=== PATIENT | male | born 1970 | race Caucasian/White ===

== ENCOUNTER 2019-10-19 10:32 | Inpatient (IN) ==
[2019-10-19] MEDS ORDERED: MORPHINE IV ONE (11:03)
[2019-10-19] MEDS ORDERED: ZOFRAN IV ONE (11:03)
[2019-10-19] MEDS ORDERED: NS 1,000 ML IV ONE ×2 (11:03)
[2019-10-19] MEDS ORDERED: PROTONIX 80 MG in NS 80 ML IV ONE (11:19)
--- NOTE | 2019-10-19 11:45 | Diag Imaging Result Doc PS360 ---
EXAM: CHEST-1 VIEW 10/19/2019 HISTORY: COUGH TECHNIQUE: AP portable upright at 1128 COMMENT: There are no previous chest radiographs available for comparison. There is an ovoid nodule over the right base. The heart size and pulmonary vascularity appear to be within normal limits. IMPRESSION: Nodular opacity over the right lower lobe. Electronically signed by Neftali Waldron 10/19/2019 11:43 AM
--- NOTE | 2019-10-19 12:49 | EKG Report ---
Test Performed on : 10/19/2019 12:41:44 PM Test Reason : CHEST PAIN Blood Pressure : / mmHG Vent. Rate : 081 BPM Atrial Rate : 081 BPM P-R Int : 140 ms QRS Dur : 108 ms QT Int : 368 ms P-R-T Axes : 069 -74 047 degrees QTc Int : 427 ms Normal sinus rhythm. Left anterior fascicular block Inferior-posterior infarct , age undetermined Abnormal ECG No previous ECGs available Unconfirmed Result
[2019-10-19 12:50] LABS: BASO# 0.02 X1000 (0.0-0.2); BASO% 0.1 % (0.0-0.8); HEMATOCRIT 46.5 % (42.0-52.0); HEMOGLOBIN 15.3 g/dL (14.0-18.0); IMM GRAN# 0.06 X1000 (0.0-0.04); IMM GRAN% 0.3 % (0.0-0.5); LYMPH# 2.06 X1000 (1.2-3.4); LYMPH% 11.9 % (20.5-51.1); MCH 29.3 PG (27-31); MCHC 32.9 g/dL (33-37); MCV 88.9 FL (81-99); MONO# 2.14 X1000 (0.11-0.59); MONO% 12.4 % (1.7-9.3); MPV 10.6 FL (7.4-10.4); NEUT# 12.96 X1000 (1.4-6.5); NEUT% 75.3 % (42.2-75.2); PLT 176 X1000 (130-400); RBC 5.23 XMIL (4.7-6.1); RDW 13.7 % (11.5-14.5); WBC 17.24 X1000 (4.8-10.8)
[2019-10-19 13:00] LABS: INR 1.01; PROTIME 13.5 Seconds (11.0-16.0)
[2019-10-19 13:01] LABS: PTT 35.3 Seconds (22.3-41.8)
[2019-10-19 13:15] LABS: ALB/GLOB RATIO 1.6; CALCIUM 8.5 mg/dL (8.8-10.2); CREATININE 1.9 mg/dL (0.7-1.2); POTASSIUM 4.2 mmol/L (3.5-5.1); TOTAL BILIRUBIN 0.58 mg/dL (0.20-1.00); TOTAL PROTEIN 6.5 g/dL (6.3-8.3)
[2019-10-19 13:36] LABS: CK INDEX 0.4 (0.0-2.5); CK-MB 2.57 ng/mL (0.0-5.0)
--- NOTE | 2019-10-19 14:40 | Diag Imaging Result Doc PS360 ---
EXAM: CT ABD/PELVIS W/IV CONT ONLY 10/19/2019 HISTORY: colitis TECHNIQUE: This exam was performed using automated exposure control, adjustment of mA or kV according to patient size, and/or use of iterative reconstruction technique. COMMENT: There are no previous studies. There is some dependent platelike atelectasis particularly in the right lower lobe. There is a large nodule in the right middle lobe with central calcification. This is likely a granuloma or hamartoma and measures in excess of 2.5 cm in diameter. The gallbladder is apparently clear. There is some atherosclerotic calcification and noncalcified plaque in the abdominal aorta. There may be some ostial stenosis of the right renal artery. The mesenteric vessels are patent. There is no evidence of significant adenopathy. The spleen adrenal glands and pancreas are within normal limits. There is some fecal debris in the colon there is no evidence of mucosal thickening. The small bowel is not particularly distended. There are no abnormal fluid collections in the appendix is normal in appearance. Pelvis: The urinary bladder is unremarkable. The regional skeleton is intact. IMPRESSION: Minimal atelectasis. No evidence of acute colitis. Otherwise no evidence of acute disease. Electronically signed by Neftali Waldron 10/19/2019 2:37 PM
[2019-10-19] MEDS ORDERED: ZOSYN 4.5 GM in NS 100 ML IV ONE (14:51)
[2019-10-19 15:00] LABS: URINE SOURCE CLEAN CATCH
--- NOTE | 2019-10-19 15:03 | PROVIDER DOCUMENTATION ---
This chart was entered by Georgia Bob Scribe, acting as scribe for Misael Adair MD. HPI-Abdominal Pain/GI Problem - General Chief Complaint: Abdominal Pain Stated Complaint: abd pain,n/d/v,coughing Time Seen by Provider: 10/19/19 10:48 Source: patient Allergies/Adverse Reactions: Patient Allergies Allergy/AdvReac Type Severity Reaction Status Date / Time No Known Allergies Allergy Verified 10/19/19 12:05 Home Medications: Home Medication List Medication Instructions Recorded Confirmed Last Taken Type Metformin HCl 1 tab PO DAILY 10/19/19 10/19/19 10/19/19 History - History of Present Illness-ABD Nature of Presenting Problems: 49yom presents to ED cc nausea, vomiting, diarrhea, cough abdominal pain and chest pain only with cough for last 3 days. Pt denies alcohol use, rectal bleeding or hx of liver issues but is a smoker. Pt does take aspirin daily. Pt has hx of ID w/2 Stents. Pt is vomiting up bright red blood in ED but hasn't had any at home. Rectal exam was preformed by Med Student Ilya Miller Abdominal Pain Onset Location: reports: generalized abdomen Pain Radiation: reports: chest Quality of Pain: reports: aching Severity in ED: reports: moderate Onset/Duration: reports: 3 days ago Timing: reports: still present, getting worse Activities at Onset: reports: light activity Modifying Factors: worse with: vomiting Associated Symptoms: reports: chest pain, cough, diarrhea, nausea, vomiting Last BM: this morning Dark Stools Present?: reports: none noticed Rectal Bleeding: reports: none Rectal Pain: reports: none Emesis Description: reports: red blood Similar Symptoms Previously?: No Recently seen or treated by another doctor?: No Review of Systems - Adult - REVIEW OF SYSTEMS - ADULT Constitutional: reports: see HPI. denies: chills, fever, fatique Eyes: reports: no symptoms reported Ears, Nose, Mouth & Throat: reports: no symptoms reported Cardiovascular: reports: see HPI, chest pain (only with coughing). denies: palpitations Respiratory: reports: see HPI, cough. denies: shortness of breath Gastrointestinal: reports: see HPI, abdominal pain (only with cough), diarrhea, nausea, vomiting. denies: rectal bleeding Genitourinary: reports: no symptoms reported Musculoskeletal: reports: no symptoms reported Integumentary: reports: no symptoms reported Neurological: reports: no symptoms reported Psychiatric: reports: no symptoms reported Endocrine: reports: no symptoms reported Hematologic/Lymphatic: reports: no symptoms reported Allergic/Immunologic: reports: no symptoms reported All Other Systems: Reviewed and Negative Past History - Adult - PAST MEDICAL HISTORY-ADULT Review of Records: reports: Nursing Assessment Review, Medications Reviewed, Social history reviewed & non-contributory. Major Childhood Illnesses: reports: denies history Cardiovascular: reports: denies history Respiratory: reports: denies history Gastrointestinal: reports: denies history Obstetrical/Gynecological: reports: denies history Genitourinary: reports: denies history Musculoskeletal: reports: denies history Neurological: reports: denies history Endocrine/Immune: reports: denies history Other Conditions: reports: denies history - IMMUNIZATION STATUS Childhood Immunizations: See Nurse Assessment Flu Vaccine: See Nurse Assessment - FAMILY HISTORY Family History: reviewed, not pertinent - SOCIAL HISTORY Smoking: cigarettes, greater than 1 pack/day Provider spent 3-5 mins advising pt. on dangers of tobacco.: Discussed manners to quit use, and f/u contacts for add'l counseling. Physical Exam-General - PHYSICAL EXAM-ADULT Initial Vital Signs Reviewed: Yes - CONSTITUTIONAL General Appearance: alert, no apparent distress. negative: anxious, combative - EYES Eyes: PERRL/EOMI, pink conjunctivae. negative: photophobia - HEAD, EARS, NOSE, MOUTH & THROAT HENMT: normocephalic/atraumatic, moist mucous membranes, other (bright red bloody vomit). negative: angioedema - NECK Neck: supple, normal inspection - RESPIRATORY Respiratory: chest non-tender, lungs clear, normal breath sounds. negative: rhonchi, wheezing - CARDIOVASCULAR Cardiovascular: normal peripheral pulses, no edema, no murmur, tachycardia, other (hypotensive). negative: bradycardia - GASTROINTESTINAL (ABDOMEN) Abdominal Exam: soft, abnormal bowel sounds (hyperactive). negative: normal bowel sounds, guarding, rebound - GENITOURINARY Rectal Exam: normal rectal tone, other (loose stool, greenish brown). negative: black stool, blood streaked stool, hemorrhoids, mass - MUSCULOSKELETAL Extremity: normal inspection, no pedal edema, no calf tenderness, normal capillary refill. negative: deformity - SKIN Integumentary: normal color. negative: diaphoresis, jaundice - PSYCHIATRIC Psych/Mental Status: normal mood/affect, oriented x 3. negative: anxious, disheveled Progress - PLAN OF CARE/RESULTS Progress/Plan/Lab Results: Vital Signs - 8 hr 10/19/19 10:36 Temperature 99.1 F Pulse Rate 96 H Respiratory Rate 16 Blood Pressure 91/65 O2 Sat by Pulse Oximetry 91 L Orders Category Date Time Status Cardiac Monitoring NOW Care 10/19/19 10:40 Active IV Insertion NOW Care 10/19/19 10:40 Active NEWS Score >or=5:Order NEWS Bundle S.O. NOW Care 10/19/19 10:38 Active Notify Provider of NEWS Score NOW Care 10/19/19 10:40 Active CHEST-1 VIEW [RAD] Stat Exams 10/19/19 10:40 Ordered BLOOD CULTURE [BLDCUL] Stat Lab 10/19/19 10:40 Uncollected CBC WITH DIFF [HEME] Stat Lab 10/19/19 10:40 Uncollected CK PROFILE [SP CHEM] Stat Lab 10/19/19 10:40 Uncollected COMPREHENSIVE METABOLIC PANEL [CHEM] Stat Lab 10/19/19 10:40 Uncollected LACTATE, PLASMA [CHEM] Q3H Lab 10/19/19 10:45 Uncollected LACTATE, PLASMA [CHEM] Q3H Lab 10/19/19 13:45 Uncollected LACTATE, PLASMA [CHEM] Q3H Lab 10/19/19 16:45 Uncollected PROTIME WITH INR [COAG] Stat Lab 10/19/19 10:40 Uncollected PTT [COAG] Stat Lab 10/19/19 10:40 Uncollected TROPONIN T HIGH SENSITIVITY Stat Lab 10/19/19 10:40 Uncollected URINALYSIS W/POSS RFLX CULT [URINALYSIS] Stat Lab 10/19/19 10:40 Uncollected O2 Per Protocol Stat Oth 10/19/19 10:40 Active EKG [EKG] Stat Ther 10/19/19 10:41 Ordered Result Diagrams: 10/19/19 12:45 10/19/19 12:45 - REASSESSMENT Reassessment #1 Time Reassessed: 14:50 Status: improving (Better after ivf bolus, protonix, zofran, also given zosyn IV) - EKG 1 Time of EKG reading by physician:: 12:49 EKG Read and Signed by:: Misael Adair EKG Interpretation (*Must complete 3 of following elements*): Abnormal (Left anterior fascicular block; inferior posterior infarct, age undetermined) Rate: 81 Rhythm: NSR ID Interval: normal ST Wave: normal - XRAY 1 XRAY: Bilateral XRAY Study: Chest Impression: See EMR Report (IMPRESSION: Nodular opacity over the right lower lobe. Electronically signed by Neftali Waldron 10/19/2019 11:43 AM) - CT/MRI 1 CT Study: Abdomen Impression: See EMR Report (IMPRESSION: Minimal atelectasis. No evidence of acute colitis. Otherwise no evidence of acute disease. Electronically signed by Neftali Waldron 10/19/2019 2:37 PM) - CONSULTS/PCP/HOSPITALIST Notification #1 *Consult/PCP/Hospitalist*: paged [phone] Time Discussed: 14:51 (Hima answered, will see, wants GI consulted) Consult Disposition: Will see in ED, Admit #2 Consult: Joyce paged at [phone] Time Discussed: 15:02 (Dr. Cunningham said NPO after midnight, will see in am) Consult Disposition: other Departure - Departure Date of Disposition Decision: 10/19/19 Time of Disposition Decision: 14:48 DIAGNOSIS: Acute nontraumatic kidney injury, Tobacco use disorder GIB (gastrointestinal bleeding) Qualifiers: GI bleed type/associated pathology: gastritis Gastritis type: acute gastritis Qualified Code(s): K29.01 - Acute gastritis with bleeding Disposition: ADMITTED INPATIENT 09 Certified Medical Emergency: Emergent Condition: Fair Referrals and Follow-Ups: None,PCP [Primary Care Provider] - Discharge Education: Steps to Quit Smoking, [id number] - Critical Care Note This patient required my direct & personal management of CC.: Yes Total Time (mins): 35 Critical Care Statement: This patient required my direct personal management to treat or rule out processes, the absence of which, could potentiallly result in sudden, clinically significant life or limb threatening deterioration. Attestation - Physician/ MARISSA Attestation Patient care was provided by Advanced Practice Provider:: No The physician spent face to face time with patient:: Yes Advanced Practice Provider documentation review:: Supervising physician onsite and consulted in the evaluation and care of this patient. The physician did have a face to face encounter with the patient. This chart was documented by the indicated scribe, (Georg[place] Bob, Daniella) and accurately reflects the services I performed and decisions made by , Misael Adair MD, as attested by the provider's signature.
[2019-10-19 15:06] LABS: BILIRUBIN URINE NEGATIVE (NEGATIVE); BLOOD URINE TRACE (NEGATIVE); COLOR YELLOW; GLUCOSE URINE NEGATIVE (NEGATIVE); KETONE URINE NEGATIVE (NEGATIVE); LEUKOCYTES URINE NEGATIVE (NEGATIVE); NITRITE URINE NEGATIVE (NEGATIVE); PROTEIN URINE TRACE mg/dL (NEGATIVE); TURBIDITY URINE CLEAR (CLEAR); UROBILINOGEN URINE NORMAL (NORMAL)
[2019-10-19 15:09] LABS: UR EPITHELIAL CELLS <10 /HPF (<10); URINE BACTERIA NEGATIVE /HPF; URINE RBC <10 /HPF (<10); URINE WBC <10 /HPF (<10)
[2019-10-19 15:12] LABS: URINE CRYSTALS NONE SEEN
[2019-10-19] MEDS ORDERED: ZOFRAN IV PRN (15:56)
[2019-10-19] MEDS: HUMULIN R SUBQ SCH ×2 (16:00→20:53)
[2019-10-19] MEDS ORDERED: SODIUM CHLORIDE 0.9% INJ SCH (16:15)
[2019-10-19] MEDS ORDERED: PROTONIX IV SCH (16:15)
--- NOTE | 2019-10-19 18:43 | HISTORY AND PHYSICAL ---
I have seen and examined Mr. Schroeder today in the emergency room. Mr. Schroeder presented because of cough, nausea, vomiting, and diarrhea. HISTORY OF PRESENTING COMPLAINT: Mr. Schroeder is a 49-year-old male who refers to have hypertension and diabetes. Normally lives in [place] but came to visit friends down here about 2 days ago. Since then, he said he has been having nausea, vomiting, and some diarrhea for 1 day. Yesterday he started having some chest discomfort and cough. This morning he vomited and it was bloody. He came to the emergency room where he was evaluated and we have been consulted for admission because of blood in his vomit and also a kidney function abnormality. PAST MEDICAL HISTORY: Diabetes, hypertension. PAST SURGICAL HISTORY: None. FAMILY HISTORY: Unremarkable. ALLERGIES: None. SOCIAL HISTORY: The patient has a 20 pack year history. He continues to smoke 1 to 1.5 packs per day. Denies any recreational drug use. No alcohol use. HOME MEDICATIONS: He said he is on metformin. He is also on something for blood pressure, but he does not remember. PHYSICAL EXAMINATION: CURRENT VITAL SIGNS: Blood pressure is 107/63, pulse of 80, respirations 16, temperature is 99.1 degrees. GENERAL: Mr. Schroeder is a 49-year-old gentleman who is in bed. He does not seems to be in any cardiopulmonary distress. HEENT: Mucosa is pink and moist. Anicteric. Acyanotic. The patient has poor dentition. NECK: Supple. CHEST: Good air entry bilaterally. A few crackles in the posterior lung butt. There is also a prolonged expiratory phase of respiration. CARDIOVASCULAR: Regular rate and rhythm. No murmurs. No rubs. No gallops. GI: Abdomen is soft, nontender. Bowel sounds present. There is no hepatosplenomegaly. EXTREMITIES: No pedal edema. Distal pulses are present. TEACHER INSTRUMENTAL: Patient is awake, alert, oriented x4. Power is 5/5. Sensation is intact. Executive functions intact. PSYCH: Mr. Schroeder is very cooperative. Has good insight. LABORATORY DATA: WBC is 17.24, hemoglobin is 15.3, platelet count 176,000. Chemistry is also reviewed. Sodium is 123, potassium 4.2, creatinine is 1.9. ASSESSMENT: 1. Nausea and vomiting with diarrhea, concerning for gastroenteritis. The patient had a CT scan of the abdomen which showed no evidence of acute colitis. 2. Cough with chest discomfort. Unremarkable chest x-ray. The patient's white cell count is slightly elevated. I think he probably has a viral syndrome. Blood cultures have been done. I would hold off on the antibiotics now, but I will check on his flu status. 3. Clinical volume depletion. Will continue with IV fluids. 4. Renal failure. Patient's creatinine is 1.9. We do not have previous studies to compare. We are going to monitor this, hydrate him overnight, recheck the renal function test again, and then go from there. cc: Horace Valle MD
[2019-10-19] MEDS ORDERED: TYLENOL PO PRN (20:12)
[2019-10-19] MEDS: NS 1,000 ML IV SCH (20:37)
[2019-10-19] MEDS: TAMIFLU PO SCH (20:37)
[2019-10-19 21:35] LABS: HEMATOCRIT 42.1 % (42.0-52.0); HEMOGLOBIN 13.8 g/dL (14.0-18.0)
[2019-10-20 05:15] LABS: BASO# 0.01 X1000 (0.0-0.2); BASO% 0.1 % (0.0-0.8); EOS# 0.02 X1000 (0.0-0.7); EOS% 0.2 % (0.0-10.0); HEMATOCRIT 42.9 % (42.0-52.0); HEMOGLOBIN 13.9 g/dL (14.0-18.0); IMM GRAN# 0.02 X1000 (0.0-0.04); IMM GRAN% 0.2 % (0.0-0.5); LYMPH# 2.32 X1000 (1.2-3.4); LYMPH% 21.2 % (20.5-51.1); MCH 29.1 PG (27-31); MCHC 32.4 g/dL (33-37); MCV 89.9 FL (81-99); MONO# 1.34 X1000 (0.11-0.59); MONO% 12.2 % (1.7-9.3); MPV 10.5 FL (7.4-10.4); NEUT# 7.24 X1000 (1.4-6.5); NEUT% 66.1 % (42.2-75.2); PLT 159 X1000 (130-400); RBC 4.77 XMIL (4.7-6.1); RDW 13.6 % (11.5-14.5); WBC 10.95 X1000 (4.8-10.8)
[2019-10-20 05:28] LABS: HEMOGLOBIN A1C 7.7 % (4.8-6.0)
[2019-10-20 05:38] LABS: AGAP 13; ALB/GLOB RATIO 1.2; ALBUMIN 3.1 g/dL (3.5-5.0); ALKALINE PHOSPHATASE 24 U/L (32-122); BUN 19 mg/dL (8-22); CALCIUM 7.6 mg/dL (8.8-10.2); CHLORIDE 98 mmol/L (98-107); COSMO 269; CREATININE 1.2 mg/dL (0.7-1.2); ESTIMATED GFR > 60; GLUCOSE 104 mg/dL (70-104); GOT 29 U/L (10-34); GPT 24 U/L (10-44); POTASSIUM 4.1 mmol/L (3.5-5.1); SODIUM 133 mmol/L (136-145); TCO2 22 mmol/L (25-35); TOTAL BILIRUBIN 0.42 mg/dL (0.20-1.00); TOTAL PROTEIN 5.6 g/dL (6.3-8.3)
[2019-10-20] MEDS: NS 1,000 ML IV SCH (05:59)
[2019-10-20] MEDS: HUMULIN R SUBQ SCH ×5 (06:01→21:48)
[2019-10-20] MEDS: PROTONIX IV SCH (09:32)
[2019-10-20] MEDS: TAMIFLU PO SCH ×2 (09:32→21:47)
--- NOTE | 2019-10-20 10:45 | PROGRESS NOTE ---
DATE: 10/20/2019 SUBJECTIVE: Overall, the patient's condition has improved since the last time Dr. Valle and I interviewed him yesterday afternoon. He reports that his admitting complaints of nausea and vomiting have improved slightly but still endorses mild sensations of nausea and vomiting and abdominal fullness, which are rendered by deep palpation. Furthermore, he reports that his feelings of fatigue and malaise have improved along with decreased sensations of shortness of breath. Yesterday, the patient tested positive for influenza A and was started on the appropriate treatment for eradication of the virus. OBJECTIVE: Vital signs: Most recent vital signs include a temperature of 98.6 degrees Fahrenheit, a heart rate of 70 beats per minute, a respiratory rate of 18 respirations per minute, a blood pressure of 105/62, and an O2 saturation of 97. PHYSICAL EXAMINATION: Cardiovascular: The heart is clear to murmurs, rubs, and gallops upon auscultation. Pulmonary: Mild inspiratory wheezes heard in all 4 lung butt consistent with chronic tobacco use, no rales were auscultated. The patient is acyanotic. GI: Bowel sounds present in all 4 quadrants. The patient endorses mild increase in sensations of nausea and vomiting upon palpation, specifically palpation to the right upper quadrant. Mild abdominal distention was appreciated in all 4 quadrants of the abdomen. PERTINENT IMAGING STUDIES: A CT of the abdomen and pelvis that was conducted yesterday 10/18 exhibited no evidence of acute disease with only mild atelectasis of the lungs. PERTINENT LABORATORY STUDIES: White blood cell count 10.95, red blood cell count 4.77, hemoglobin 13.9, hematocrit 42.9, MCV 89.9, MCH 29.1, MCHC 32.4. Sodium 133, potassium 4.1, chloride 98, carbon dioxide 22, anion gap 13, BUN 19, creatinine 1.2, glucose 104, total bilirubin 0.42, AST 29, ALT 24, alkaline phosphatase 24. ASSESSMENT AND PLAN: 1. Acute Hypoxemic respiratory failure. He continue to be on supplemental oxygen 2. Influenza pneumonia, continue with the Tamiflu for 5 days Again, the patient appears to be doing much better since the treatment with oseltamivir, and ondansetron was initiated yesterday evening in the emergency department. We will continue this treatment in hopes that this will clear the virus from the patient, and assuming that his symptoms continue to improve, we will continue this treatment until he tests negative for the influenza virus A or he reports no symptoms. 3. Clinical volume depletion: continue iv fluids 4. Diarrhea and vomiting resolved. Thank you very much for allowing me to see your patient. Dictated by Maxine Amezcua, Medical Student for Horace Valle MD This chart was documented by, Benedicto Veras Student and accurately reflects the services performed, treatment plan and medical decisions as attested by the providers signature Horace Valle MD. cc: Horace Valle MD [facility]
[2019-10-21 05:50] LABS: HEMATOCRIT 39.7 % (42.0-52.0); HEMOGLOBIN 13.3 g/dL (14.0-18.0); MCHC 33.5 g/dL (33-37); MCV 89.6 FL (81-99); MPV 10.3 FL (7.4-10.4); RBC 4.43 XMIL (4.7-6.1); RDW 13.2 % (11.5-14.5); WBC 8.62 X1000 (4.8-10.8)
[2019-10-21 06:20] LABS: AGAP 11; ALBUMIN 3.4 g/dL (3.5-5.0); BUN 19 mg/dL (8-22); CALCIUM 8.2 mg/dL (8.8-10.2); CHLORIDE 97 mmol/L (98-107); COSMO 274; CREATININE 1.2 mg/dL (0.7-1.2); ESTIMATED GFR > 60; GLUCOSE 122 mg/dL (70-104); PHOSPHORUS 2.8 mg/dL (2.7-4.5); POTASSIUM 3.9 mmol/L (3.5-5.1); SODIUM 135 mmol/L (136-145); TCO2 27 mmol/L (25-35)
[2019-10-21 08:48] VITALS: BP 110/59
[2019-10-21] MEDS: TAMIFLU PO SCH (09:04)
[2019-10-21] MEDS: PROTONIX IV SCH (09:04)
--- NOTE | 2019-10-21 20:19 | DISCHARGE SUMMARY ---
ADMISSION DATE: 10/19/2019 DISCHARGE DATE: 10/21/2019 DISCHARGE DIAGNOSES: 1. Influenza A infection. 2. Nausea, vomiting, diarrhea, now resolved. 3. Acute kidney injury on chronic kidney disease (CKD) II. 4. Volume depletion. 5. Diabetes. 6. Hypertension. 7. Right lung granuloma. HOSPITAL COURSE: The patient presented initially with nausea, vomiting, diarrhea, cough, and chest discomfort. Chest x-ray showed no pneumonia. It showed a nodular opacity in the right lower lobe. Subsequent CT of the abdomen and pelvis showed no acute process and the nodule in the right lobe appeared to be a likely granuloma, approximately 2.5 cm in diameter. The patient was found to be dehydrated with acute kidney injury with creatinine 1.9, was placed on aggressive fluids with improvement in creatinine down to 1.2, which was felt to be his likely baseline. He was found to be influenza A-positive, which was thought to be the etiology of his illness. He was placed on Tamiflu and treated supportively with IV fluids and rapidly improved. He was started on a diet and advanced. On the day of discharge, he was eating and drinking without any difficulty. His acute kidney injury resolved as above. He had some low sodium that also essentially resolved. His leukocytosis on admission with a white count of 17.2, also resolved. Discharge white count 8.6. As he was eating and drinking well and no bacterial infection was identified, it was felt that he was safe to discharge home to follow up with his PCP. DISCHARGE VITALS: Temperature 98.7 degrees, pulse 63, respirations 18, blood pressure 110/59, O2 saturation 93% on room air. DISCHARGE MEDICATIONS: Metformin 1000 mg p.o. b.i.d., glipizide as previously prescribed, Tamiflu 75 mg p.o. b.i.d. DISCHARGE DIET: Diabetic low salt. FOLLOWUP AND PLAN: The patient discharging home on a course of Tamiflu to follow up with his PCP. The patient to hold his home hydrochlorothiazide for now until he follows up with his PCP to recheck his kidney function, but he will likely be fine to restart it then. The patient was apparently taking his metformin only once a day. Discussed this with patient and, as per his bottle and per usual dosing, metformin is twice a day. Patient expressed understanding. TIME SPENT: Greater than 30 minutes spent arranging discharge and counseling patient.
== END 2019-10-21 11:12 | disposition home or self-care (01) | DRG 194 ==
LOC: ED 10:32 → SUATTDRO 16:10 → EDIPHOLD 16:10 → 1N 18:55
PROVIDERS: ATTEND Internal Medicine